=== PATIENT | female | born 1975 | race Caucasian/White ===

== ENCOUNTER 2016-12-17 10:01 | Emergency (ER) | payer OTHER ==
[2016-12-17 11:02] LABS: BILIRUBIN NEGATIVE (NEGATIVE); BLOOD TRACE-INTACT Ery/uL (NEGATIVE); CLARITY CLEAR (CLEAR); COLOR YELLOW (YELLOW); GLUCOSE (U) NORMAL (NORMAL); KETONE (U) NEGATIVE (NEGATIVE); LEUKOCYTES NEGATIVE Leu/uL (NEGATIVE); NITRITE NEGATIVE (NEGATIVE); PROTEIN NEGATIVE (NEGATIVE); UROBILINOGEN 0.2 mg/dL (0.2-1.0); pH 6.5 (5.0-9.0)
[2016-12-17 11:07] LABS: URINARY WBC RARE
[2016-12-17 11:32] LABS: BASOPHIL 0.4 % (0-2); EOSINOPHIL 2.6 % (0-5); HCT 42.2 % (37.0-47.0); HGB 14.3 g/dl (12.5-16.0); LYMPHOCYTE 20.8 % (15-48); MCH 32.1 pg (25.0-31.0); MCHC 33.9 g/dL (32.0-36.0); MCV 94.8 fL (78.0-100.0); MONOCYTE 6.2 % (0-12); MPV 10.1 fL (6.0-9.5); PLT 251 K/uL (150-400); RBC 4.45 M/uL (4.20-5.40); RDW 13.7 % (11.5-14.0); WBC 11.1 K/uL (4.0-10.5)
[2016-12-17 11:44] LABS: INR 2.86 (0.9-1.2); PROTHROMBIN TIME 29.3 SECONDS (11.7-14.0); PTT 45.5 SECONDS (23.2-31.4)
[2016-12-17 11:47] LABS: ALBUMIN 3.9 g/dL (3.5-5.0); BILIRUBIN - TOTAL 0.3 mg/dL (0.1-1.0); CREATININE 0.6 mg/dL (0.5-1.0); GLOBULIN (CALCULATION) 2.6 g/dL (2.2-4.2); POTASSIUM 3.8 mmol/L (3.5-5.1); TOTAL PROTEIN 6.5 g/dL (6.4-8.3)
== END 2016-12-17 12:47 | disposition home or self-care (01) ==
LOC: FER 10:01
PROVIDERS: Internal Medicine
DX: M53.3 Sacrococcygeal disorders, not elsewhere classified (principal); R11.0 Nausea; E78.5 Hyperlipidemia, unspecified; Z86.73 Personal history of transient ischemic attack (TIA), and cerebral infarction without residual deficits; Z79.01 Long term (current) use of anticoagulants
CPT/HCPCS: 36415; 80053; 81001; 82150; 83690; 85025; 85610; 85730; J1170; J2405

== ENCOUNTER → 2016-12-25 | Day surgery (SDC) | payer OTHER ==
[2016-12-25 06:58] LABS: INR 1.03 (0.9-1.2); PROTHROMBIN TIME 13.1 SECONDS (11.7-14.0)
== END | disposition home or self-care (01) ==
LOC: FAS 05:45
PROVIDERS: Nurse Practitioner Adult Health
DX: G56.01 Carpal tunnel syndrome, right upper limb (principal); K57.90 Diverticulosis of intestine, part unspecified, without perforation or abscess without bleeding; K76.0 Fatty (change of) liver, not elsewhere classified; F17.210 Nicotine dependence, cigarettes, uncomplicated; Z86.718 Personal history of other venous thrombosis and embolism; Z86.73 Personal history of transient ischemic attack (TIA), and cerebral infarction without residual deficits; Z98.890 Other specified postprocedural states; Z90.49 Acquired absence of other specified parts of digestive tract; Z79.01 Long term (current) use of anticoagulants; Z79.2 Long term (current) use of antibiotics; Z79.899 Other long term (current) drug therapy
CPT/HCPCS: 36415; 84703; 85610; 85730; J2405; J2704; J3010

== ENCOUNTER 2017-02-04 12:36 | Emergency (ER) | payer OTHER ==
[2017-02-04 13:17] LABS: BILIRUBIN NEGATIVE (NEGATIVE); BLOOD NEGATIVE Ery/uL (NEGATIVE); CLARITY CLEAR (CLEAR); COLOR YELLOW (YELLOW); GLUCOSE (U) NORMAL (NORMAL); KETONE (U) NEGATIVE (NEGATIVE); LEUKOCYTES NEGATIVE Leu/uL (NEGATIVE); NITRITE NEGATIVE (NEGATIVE); PROTEIN NEGATIVE (NEGATIVE); SPECIFIC GRAVITY 1.025 (1.001-1.030); UROBILINOGEN 0.2 mg/dL (0.2-1.0)
== END 2017-02-04 15:53 | disposition home or self-care (01) ==
LOC: FER 12:36
PROVIDERS: Nurse Practitioner
DX: M12.88 Other specific arthropathies, not elsewhere classified, other specified site (principal); E78.5 Hyperlipidemia, unspecified; F17.210 Nicotine dependence, cigarettes, uncomplicated; Z90.49 Acquired absence of other specified parts of digestive tract; Z86.73 Personal history of transient ischemic attack (TIA), and cerebral infarction without residual deficits
CPT/HCPCS: 72128; 72131; 81003; J2270

== ENCOUNTER → 2017-03-06 | Day surgery (SDC) | payer OTHER | END | disposition home or self-care (01) | LOC: FAS 07:26 | DX: G56.02 Carpal tunnel syndrome, left upper limb (principal); F17.210 Nicotine dependence, cigarettes, uncomplicated; Z86.73 Personal history of transient ischemic attack (TIA), and cerebral infarction without residual deficits; Z79.899 Other long term (current) drug therapy; Z79.01 Long term (current) use of anticoagulants; Z90.49 Acquired absence of other specified parts of digestive tract; Z98.890 Other specified postprocedural states | CPT/HCPCS: 71010; 84703; J2704 ==

== ENCOUNTER 2021-05-29 10:34 | Emergency (ER) | payer OTHER ==
[~2021-05-29 10:34] MED LIST: NORCO 5-325 TA1 EACH PO
== END 2021-05-29 14:50 | disposition home or self-care (01) ==
LOC: FER 10:34
DX: S60.221A Contusion of right hand, initial encounter (principal); F17.210 Nicotine dependence, cigarettes, uncomplicated; E11.9 Type 2 diabetes mellitus without complications; Z23 Encounter for immunization; Z86.73 Personal history of transient ischemic attack (TIA), and cerebral infarction without residual deficits; Z79.01 Long term (current) use of anticoagulants; W22.8XXA Striking against or struck by other objects, initial encounter; Y92.009 Unspecified place in unspecified non-institutional (private) residence as the place of occurrence of the external cause
CPT/HCPCS: 73130; 90471; 90715